=== PATIENT | male | born 1980 | race African-American/Black ===

== ENCOUNTER 2017-02-16 19:43 | Emergency (ER) | payer BC ==
[2017-02-16 19:54] VITALS: BP 132/90
[2017-02-16] MEDS ORDERED: Sodium Chloride 0.9% 10 ML Syringe FLUSH PRN (20:13)
[2017-02-16] MEDS ORDERED: Ketorolac 30 MG/ML SDV IVPUSH ONE (20:13)
--- NOTE | 2017-02-16 22:06 | EDM.PDOC ---
ED HPI GENERAL MEDICAL PROBLEM - General Chief Complaint: Chest Pain Stated Complaint: Chest pain Time Seen by Provider: 02/16/17 20:10 Source of Information: Reports: Patient, RN Notes Reviewed History Limitations: Reports: No Limitations - History of Present Illness INITIAL COMMENTS - FREE TEXT/NARRATIVE: 36 year old male presents to the ED with complaints of substernal chest pain that started yesterday while he was at work. He describes the pain as achy and constant. The pain radiates into his back. The pain is worse when lying flat and improves with sitting up or learning forward. The pain is worse with inspiration. He says "the pain is on the inside." He denies pain with palpation to his chest. He has no cardiac history or congenital heart history. He denies any history of drug use. He does not drink alcohol or use tobacco. He does a lot of heavy lifting at his job. He takes no medications. He denies fever, chills, sweats, dizziness, lightheadedness, shortness of breath, cough, dyspnea. No nausea, vomiting, abdominal pain, diarrhea or constipation. Chest Pain Score (Numeric/FACES): 10 - Related Data Allergies Allergy/AdvReac Type Severity Reaction Status Date / Time No Known Allergies Allergy Verified 02/16/17 19:49 Home Meds: Home Meds Ibuprofen 600 mg PO TID PRN #90 tablet 02/16/17 [Rx] Past Medical History - Past Health History Medical/Surgical History: Denies Medical/Surgical History HEENT History: Reports: Allergic Rhinitis Psychiatric History: Reports: None Hematologic History: Reports: None - Infectious Disease History Infectious Disease History: Reports: None Social & Family History - Family History Family Medical History: Noncontributory - Tobacco Use Smoking Status *Q: Never Smoker Second Hand Smoke Exposure: No - Caffeine Use Caffeine Use: Reports: Energy Drinks - Recreational Drug Use Recreational Drug Use: No - Living Situation & Occupation Occupation: Unemployed ED ROS GENERAL - Review of Systems Review Of Systems: See Below Constitutional: Reports: No Symptoms. Denies: Fever, Chills, Diaphoresis Respiratory: Reports: Pleuritic Chest Pain. Denies: Shortness of Breath, Cough Cardiovascular: Reports: Chest Pain. Denies: Dyspnea on Exertion, Edema, Lightheadedness, Palpitations GI/Abdominal: Denies: Abdominal Pain, Constipation, Diarrhea, Hematemesis, Nausea, Vomiting ED EXAM, GENERAL - Physical Exam Exam: See Below Exam Limited By: No Limitations General Appearance: Alert, WD/WN, Anxious, Mild Distress Respiratory/Chest: No Respiratory Distress, Lungs Clear, Normal Breath Sounds, No Accessory Muscle Use, Chest Non-Tender Cardiovascular: Normal Peripheral Pulses, Regular Rate, Rhythm, No Edema, No JVD , No Murmur, No Rub, Other (Asked patient to lean forward, he denied any change in symptoms. I then had him lie flat and he reported worsening of chest pain. ) . No: Friction Rub GI/Abdominal: Normal Bowel Sounds, Soft, Non-Tender Neurological: Alert, Oriented, Normal Cognition EKG INTERPRETATION EKG Date: 02/16/17 Time: 19:58 Rhythm: NSR Rate (Beats/Min): 67 Fonda: LAD-Left Fonda Deviation P-Wave: Present QRS: Normal ST-T: Elevated QT: Normal EKG Interpretation Comments: EKG read by Dr. Bond. Patient has diffuse ST segment elevation, consistent with pericarditis. Dr. Bond recommends labs and chest x-ray. CBC with manual diff is normal. CRP and ESR are WNL. D-dimer and Troponin WNL. CMP normal. 1 view portable chest x-ray reviewed with Dr. Bond. Normal chest x-ray. No pleural effusions, infiltrates. Heart size appears slightly large, likely due to portable technique. No pneumothorax. Normal mediastinum. Compared to previous Cxr and is unchanged. Patient was treated with 30mg of IV toradol and had complete resolution of pain. Labs and Chest x-ray are normal. History, exam, and EKG findings are suggestive of pericarditis. Discussed with Dr. Bond again who agrees and recommends treating with NSAIDs. Patient was notified of treatment plan and is agreeable. He agrees to f/u in the clinic next week for recheck and to establish care. He was educated on return precautions. Discharge instructions as documented. Course - Vital Signs Last Recorded V/S: Last Vital Signs Temp 97.1 F 02/16/17 19:49 Pulse 61 02/16/17 19:49 Resp 20 02/16/17 19:49 BP 132/90 02/16/17 19:49 Pulse Ox 97 02/16/17 19:49 - Orders/Labs/Meds Orders: Active Orders 24 hr Category Date Time Status EKG Documentation Completion [RC] ASDIRECTED Care 02/16/17 20:16 Active Peripheral IV Care [RC] . DIRECTED Care 02/16/17 20:14 Active CXR [Chest 1V Frontal] [CR] Stat Exams 02/16/17 20:13 Taken Sodium Chloride 0.9% [Saline Flush] Med 02/16/17 20:13 Active 10 ml FLUSH ASDIRECTED PRN Peripheral IV Insertion Adult [OM.PC] Stat Oth 02/16/17 20:13 Ordered EKG 12 Lead [EK] Stat Ther 02/16/17 20:16 Ordered Medication Orders Sodium Chloride (Saline Flush) 10 ml FLUSH ASDIRECTED PRN PRN Reason: Keep Vein Open Last Admin: 02/16/17 20:21 Dose: 10 ml Labs: Laboratory Tests 02/16/17 02/16/17 02/16/17 Range/Units 20:05 20:05 20:05 WBC 5.62 (4.23-9.07) K/mm3 RBC 6.15 H (4.63-6.08) M/mm3 Hgb 15.6 (13.7-17.5) gm/L Hct 45.7 (40.1-51.0) % MCV 74.3 L (79.0-92.2) fl MCH 25.4 L (25.7-32.2) pg MCHC 34.1 (32.2-35.5) g/dl RDW Std Deviation 36.1 (35.1-43.9) fL Plt Count 169 (163-337) K/mm3 MPV 11.7 (9.4-12.3) fl Neutrophils % (Manual) 55 (40-60) % Band Neutrophils % 0 (0-10) % Lymphocytes % (Manual) 40 (20-40) % Atypical Lymphs % 0 % Monocytes % (Manual) 4 (2-10) % Eosinophils % (Manual) 1 (0.8-7.0) % Basophils % (Manual) 0 L (0.2-1.2) Platelet Estimate Adequate Hypochromasia 1+ slight Anisocytosis 1+ slight Microcytosis 1+ slight RBC Morph Comment Not Reportable ESR (0-15) mm/hr D-Dimer, Quantitative 0.26 (0.19-0.59) mg/L Sodium (136-145) mEq/L Potassium (3.5-5.1) mEq/L Chloride (98-107) mEq/L Carbon Dioxide (21-32) mEq/L Anion Gap (5-15) BUN (7-18) mg/dL Creatinine (0.7-1.3) mg/dL Est Cr Clr Drug Dosing mL/min Estimated GFR (MDRD) (>60) mL/min BUN/Creatinine Ratio (14-18) Glucose (74-106) mg/dL Calcium (8.5-10.1) mg/dL Total Bilirubin (0.2-1.0) mg/dL AST (15-37) U/L ALT (16-63) U/L Alkaline Phosphatase (46-116) U/L Troponin I < 0.017 (0.00-0.056) ng/mL C-Reactive Protein 0.5 (<1.0) mg/dL Total Protein (6.4-8.2) g/dl Albumin (3.4-5.0) g/dl Globulin gm/dL Albumin/Globulin Ratio (1-2) 02/16/17 02/16/17 Range/Units 20:05 20:05 WBC (4.23-9.07) K/mm3 RBC (4.63-6.08) M/mm3 Hgb (13.7-17.5) gm/L Hct (40.1-51.0) % MCV (79.0-92.2) fl MCH (25.7-32.2) pg MCHC (32.2-35.5) g/dl RDW Std Deviation (35.1-43.9) fL Plt Count (163-337) K/mm3 MPV (9.4-12.3) fl Neutrophils % (Manual) (40-60) % Band Neutrophils % (0-10) % Lymphocytes % (Manual) (20-40) % Atypical Lymphs % % Monocytes % (Manual) (2-10) % Eosinophils % (Manual) (0.8-7.0) % Basophils % (Manual) (0.2-1.2) Platelet Estimate Hypochromasia Anisocytosis Microcytosis RBC Morph Comment ESR 6 (0-15) mm/hr D-Dimer, Quantitative (0.19-0.59) mg/L Sodium 139 (136-145) mEq/L Potassium 3.9 (3.5-5.1) mEq/L Chloride 105 (98-107) mEq/L Carbon Dioxide 25 (21-32) mEq/L Anion Gap 12.9 (5-15) BUN 19 H (7-18) mg/dL Creatinine 1.1 (0.7-1.3) mg/dL Est Cr Clr Drug Dosing 90.68 mL/min Estimated GFR (MDRD) > 60 (>60) mL/min BUN/Creatinine Ratio 17.3 (14-18) Glucose 128 H (74-106) mg/dL Calcium 8.8 (8.5-10.1) mg/dL Total Bilirubin 0.4 (0.2-1.0) mg/dL AST 30 (15-37) U/L ALT 43 (16-63) U/L Alkaline Phosphatase 79 (46-116) U/L Troponin I (0.00-0.056) ng/mL C-Reactive Protein (<1.0) mg/dL Total Protein 7.1 (6.4-8.2) g/dl Albumin 3.5 (3.4-5.0) g/dl Globulin 3.6 gm/dL Albumin/Globulin Ratio 1.0 (1-2) Meds: Medications Generic Name Dose Route Start Last Admin Trade Name Freq PRN Reason Stop Dose Admin Sodium Chloride 10 ml 02/16/17 20:13 02/16/17 20:21 Saline Flush FLUSH 10 ml ASDIRECTED PRN Administration Keep Vein Open Discontinued Medications Generic Name Dose Route Start Last Admin Trade Name Freq PRN Reason Stop Dose Admin Ketorolac Tromethamine 30 mg 02/16/17 20:13 02/16/17 20:21 Toradol IVPUSH 02/16/17 20:14 30 mg ONETIME ONE Administration Departure - Departure Time of Disposition: 22:03 Disposition: Home, Self-Care 01 Condition: Good Clinical Impression: Chest pain Qualifiers: Chest pain type: unspecified Qualified Code(s): R07.9 - Chest pain, unspecified Pericarditis Qualifiers: Pericarditis type: idiopathic Chronicity: acute Qualified Code(s): I30.0 - Acute nonspecific idiopathic pericarditis Prescriptions: Ibuprofen 600 mg PO TID PRN #90 tablet PRN Reason: Pain Instructions: Pericarditis, Nonspecific Chest Pain, [id number] Referrals: PCP,None [Primary Care Provider] - Forms: ED Department Discharge, ED Return to Work/School Form Additional Instructions: Ibuprofen 600mg 3 times a day consistent for 4 weeks. Tylenol as needed for pain not relieved by Ibuprofen Return to ER with worsening symptoms, difficulty breathing, lightheadedness, dizziness, or any additional concerns Call the clinic to schedule an appointment with one of our primary care providers. Call [phone] to schedule Recommend that you follow-up next week for recheck No strenuous activity for 1 month. No heavy lifting of intense exercise. - My Orders Last 24 Hours: My Active Orders 02/16/17 20:13 CXR [Chest 1V Frontal] [CR] Stat Sodium Chloride 0.9% [Saline Flush] 10 ml FLUSH ASDIRECTED PRN Peripheral IV Insertion Adult [OM.PC] Stat 02/16/17 20:14 Peripheral IV Care [RC] . DIRECTED 02/16/17 20:16 EKG Documentation Completion [RC] ASDIRECTED EKG 12 Lead [EK] Stat - Assessment/Plan Last 24 Hours: My Active Orders 02/16/17 20:13 CXR [Chest 1V Frontal] [CR] Stat Sodium Chloride 0.9% [Saline Flush] 10 ml FLUSH ASDIRECTED PRN Peripheral IV Insertion Adult [OM.PC] Stat 02/16/17 20:14 Peripheral IV Care [RC] . DIRECTED 02/16/17 20:16 EKG Documentation Completion [RC] ASDIRECTED EKG 12 Lead [EK] Stat
--- NOTE | 2017-02-19 08:35 | CR ---
Chest: Portable view of the chest was obtained. Comparison: Previous chest x-ray of 05/13/15. Heart size and mediastinum are within normal limits for portable technique. Lungs are clear. Bony structures are grossly intact. Impression: 1. Nothing acute is identified on portable chest x-ray. Diagnostic code #1
== END 2017-02-16 22:22 | disposition home or self-care (01) ==
LOC: JD.ED 19:43
DX: I30.0 Acute nonspecific idiopathic pericarditis (principal)
CPT/HCPCS: 36415; 71010; 80053; 84484; 85025; 85379; 85652; 86140; 93005; 96374; 99285; J1885; J7050; 93010

== ENCOUNTER 2017-06-11 20:56 | Emergency (ER) | payer BC ==
[2017-06-11 21:12] VITALS: BP 134/95
[2017-06-11] MEDS ORDERED: Sodium Chloride 0.9% 10 ML Syringe FLUSH PRN (21:31)
[2017-06-11] MEDS ORDERED: HYDROmorphone 0.5 MG/0.5 ML SYRINGE IVPUSH ONE (21:32)
[2017-06-11] MEDS ORDERED: Ondansetron 4 MG/2 ML SDV IVPUSH ONE (21:32)
--- NOTE | 2017-06-11 21:38 | EDM.PDOC ---
ED HPI GENERAL MEDICAL PROBLEM - General Chief Complaint: Back Pain or Injury Stated Complaint: BACK PAIN Time Seen by Provider: 06/11/17 21:20 Source of Information: Reports: Patient History Limitations: Reports: No Limitations - History of Present Illness INITIAL COMMENTS - FREE TEXT/NARRATIVE: 36-year-old male presents to the ED with severe mid back pain. This started about 3 weeks ago and is progressively getting worse. He worked 10 hours a day but states that it hurts tremendously by the time is done his shift and he is unable to sleep over the last 3 days because of increasing pain. Of note the patient was recently diagnosed with tuberculosis by quadrant of a lead testing 2 that was positive. He does have a mild cough with sputum production but does not have any hemoptysis. He was visiting gone over the months of January. He was diagnosed positive with quadrivalent testing in April. Unfortunately he had changed his phone number and they were not able to locate him up until recently. He is therefore not received any treatment for this. He is coughing but not bringing up any hemoptysis. He is to see infectious disease specialist tomorrow in regards to starting treatment. Currently employed at [employer]. He presents not wearing any mask or form of protection. Concern therefore is for possible miliary tuberculosis affecting his lower thoracic spine where his pain is. Denies any weight loss. Appetite remains quite good. Keeping very poorly due to back pain. He has taken no medication for the back pain. Onset: Gradual Onset Date: 05/23/17 Duration: Day(s): (Pain is gradually worsened over the last 3 weeks.) Location: Reports: Back (Mid lower back i.e. lower thoracic spine) Quality: Reports: Ache (E aching pain worsened with movement better if he is lying perfectly still grades the pain as 10 out of 10 with movement and standing but) Severity: Moderate (3-4 out of 10 with lying still) Improves with: Reports: Rest Worsens with: Reports: Movement Context: Denies: Activity, Exercise, Lifting, Sick Contact, Trauma Associated Symptoms: Reports: Cough, cough w sputum, Other Treatments EXTRUSION DIE COORDINATOR: Reports: Other (see below) (None.) Back Pain Score (Numeric/FACES): 9 - Related Data Allergies Allergy/AdvReac Type Severity Reaction Status Date / Time No Known Allergies Allergy Verified 02/16/17 19:49 Home Meds: Home Meds Meloxicam 15 mg PO DAILY #30 tablet 06/11/17 [Rx] oxyCODONE HCl/Acetaminophen [Percocet 5-325 mg Tablet] 1 - 2 each PO Q4H PRN # 20 tablet 06/11/17 [Rx] Past Medical History - Past Health History Medical/Surgical History: Denies Medical/Surgical History HEENT History: Reports: Allergic Rhinitis Psychiatric History: Reports: None Hematologic History: Reports: None - Infectious Disease History Infectious Disease History: Reports: TB Social & Family History - Family History Family Medical History: Noncontributory - Tobacco Use Smoking Status *Q: Never Smoker Second Hand Smoke Exposure: No - Caffeine Use Caffeine Use: Reports: Energy Drinks - Recreational Drug Use Recreational Drug Use: No - Living Situation & Occupation Occupation: Unemployed ED ROS GENERAL - Review of Systems Review Of Systems: See Below Constitutional: Reports: Malaise, Weakness, Fatigue. Denies: Fever, Chills, Night Sweats, Diaphoresis, Decreased Appetite, Weight Loss HEENT: Reports: No Symptoms Respiratory: Reports: Cough, Sputum. Denies: Hemoptysis (Occasional sputum production) Cardiovascular: Reports: No Symptoms. Denies: Chest Pain, Blood Pressure Problem, Claudication, Dyspnea on Exertion, Edema, Lightheadedness, Orthopnea Endocrine: Reports: Fatigue GI/Abdominal: Reports: No Symptoms : Reports: No Symptoms Musculoskeletal: Reports: Back Pain Skin: Reports: No Symptoms (See history of present illness) Neurological: Reports: No Symptoms Psychiatric: Reports: No Symptoms Hematologic/Lymphatic: Reports: No Symptoms ED EXAM,LOWER BACK PAIN/INJURY - Physical Exam Exam: See Below Exam Limited By: No Limitations General Appearance: Alert, WD/WN, Moderate Distress (Appears to be meningealPain and discomfort.) Eye Exam: Bilateral Eye: Normal Inspection Neck: Normal Inspection, Supple, Non-Tender, Full Range of Motion. No: Lymphadenopathy (L), Lymphadenopathy (R) Respiratory/Chest: No Respiratory Distress, Lungs Clear, Normal Breath Sounds, No Accessory Muscle Use Cardiovascular: Normal Peripheral Pulses, Regular Rate, Rhythm, No Edema, No Gallop, No Murmur, No Rub GI/Abdominal: Normal Bowel Sounds, Soft, Non-Tender, No Organomegaly, No Abnormal Bruit, No Mass, Pelvis Stable Back Exam: Full Range of Motion, Vertebral Tenderness (Pain is localized to T10- 11 and 12 vertebra posteriorly), Other (Pain is worsened when he hyperextends his back.). No: CVA Tenderness (L), CVA Tenderness (R) Extremities: Normal Inspection ( on palpation of the spinous processes.), Normal Range of Motion, Non-Tender, No Pedal Edema Neurological: Alert, Normal Mood/Affect, Normal Dorsiflexion, CN II-XII Intact Psychiatric: Normal Affect Skin Exam: Warm, Intact, Normal Color, No Rash Course - Vital Signs Last Recorded V/S: Last Vital Signs Temp 35.9 C 06/11/17 21:07 Pulse 79 06/11/17 21:07 Resp BP 134/95 H 06/11/17 21:07 Pulse Ox 96 06/11/17 21:07 - Orders/Labs/Meds Orders: Active Orders 24 hr Category Date Time Status Peripheral IV Care [RC] . DIRECTED Care 06/11/17 21:32 Active Chest wo Cont [CT] Stat Exams 06/11/17 21:34 Taken Thoracic Spine wo Cont [CT] Stat Exams 06/11/17 21:33 Taken Peripheral IV Insertion Adult [OM.PC] Stat Oth 06/11/17 21:32 Ordered Labs: Laboratory Tests 06/11/17 06/11/17 06/11/17 Range/Units 21:37 21:37 21:37 WBC 4.41 (4.23-9.07) K/mm3 RBC 6.36 H (4.63-6.08) M/mm3 Hgb 16.0 (13.7-17.5) gm/L Hct 47.6 (40.1-51.0) % MCV 74.8 L (79.0-92.2) fl MCH 25.2 L (25.7-32.2) pg MCHC 33.6 (32.2-35.5) g/dl RDW Std Deviation 37.3 (35.1-43.9) fL Plt Count 168 (163-337) K/mm3 MPV 11.9 (9.4-12.3) fl Neutrophils % (Manual) 50 (40-60) % Band Neutrophils % 0 (0-10) % Lymphocytes % (Manual) 42 H (20-40) % Atypical Lymphs % 2 % Monocytes % (Manual) 5 (2-10) % Eosinophils % (Manual) 1 (0.8-7.0) % Basophils % (Manual) 0 L (0.2-1.2) Platelet Estimate Adequate Plt Morphology Comment Normal RBC Morph Comment Normal ESR 4 (0-15) mm/hr Sodium 141 (136-145) mEq/L Potassium 4.1 (3.5-5.1) mEq/L Chloride 106 (98-107) mEq/L Carbon Dioxide 28 (21-32) mEq/L Anion Gap 11.1 (5-15) BUN 16 (7-18) mg/dL Creatinine 1.2 (0.7-1.3) mg/dL Est Cr Clr Drug Dosing 69.15 mL/min Estimated GFR (MDRD) > 60 (>60) mL/min BUN/Creatinine Ratio 13.3 L (14-18) Glucose 132 H (74-106) mg/dL Calcium 8.9 (8.5-10.1) mg/dL Total Bilirubin 0.3 (0.2-1.0) mg/dL AST 29 (15-37) U/L ALT 38 (16-63) U/L Alkaline Phosphatase 84 (46-116) U/L C-Reactive Protein 0.7 (<1.0) mg/dL Total Protein 6.7 (6.4-8.2) g/dl Albumin 3.5 (3.4-5.0) g/dl Globulin 3.2 gm/dL Albumin/Globulin Ratio 1.1 (1-2) Meds: Medications Discontinued Medications Generic Name Dose Route Start Last Admin Trade Name Freq PRN Reason Stop Dose Admin Hydromorphone HCl 0.5 mg 06/11/17 21:32 06/11/17 21:50 Dilaudid IVPUSH 06/11/17 21:33 0.5 mg ONETIME ONE Administration Ketorolac Tromethamine 30 mg 06/11/17 21:45 06/11/17 21:50 Toradol IVPUSH 30 mg ONETIME SRINIVASAN Administration Ondansetron HCl 4 mg 06/11/17 21:32 06/11/17 21:48 Zofran IVPUSH 06/11/17 21:33 4 mg ONETIME ONE Administration Sodium Chloride 10 ml 06/11/17 21:31 06/11/17 21:52 Saline Flush FLUSH 10 ml ASDIRECTED PRN Administration Keep Vein Open - Radiology Interpretation Free Text/Narrative:: 36-year-old male from [place]. Presents to the ED with increasing back pain 3 weeks. This is the point now that it's interfering with his ability to fall asleep is no position is carpal. His continue to work in [employer] standing on concrete for 10 hours a day with minimal marked aggravation of the pain. Pain is in his lower thoracic spine. Of note patient has been recently diagnosed with quadrivalent testing for tuberculosis positive 2. He does have a productive cough without hemoptysis. Denies any weight loss. Appetite remains fair. He does have the occasional night sweats. For there is concern for miliary tuberculosis involving his thoracic spine plan CT thoracic spine. Routine labs to include CRP and sedimentation rate. CT chest will also be done without contrast. He is to see infectious disease specialist tomorrow at [facility] to start medication for tuberculosis. - Re-Assessments/Exams Free Text/Narrative Re-Assessment/Exam: 06/11/17 23:00 : ET scan of his chest is reported with no focal opacity in the lungs no significant pleural effusion or pneumothorax. There is no acute abnormality of the heart no acute osseous abnormalities. No significant soft tissue abnormalities . No abnormalities of the vasculature. No pathologically enlarged lymph nodes. Essentially a negative CT chest for any possibility of tuberculosis. CT of the thoracic spine revealed no subluxation or acute fractures. There are no lytic or blastic skeletal lesions. There is no evidence of large disc herniation or high-grade spinal canal stenosis. There is degenerative changes with mild anterior spurring throughout the lower lumbar spine particularly T9-T-12 which correlates with the patient's pain. Is therefore his current pain is back there appears to be from degenerative disc disease and arthritis. Reassured no signs of tuberculosis are evident. A copy of his CT chest and back were placed on CD-ROM and given to the patient take to infectious disease specialist whom he supposed to see tomorrow. I will also fax over my history and physical examination in the [facility] reports for the infectious disease doctor's perusal. I suspect it will be Dr. Romero. Treatment will be meloxicam 15 mg once a day 30 tablets. I did provide him with a few tablets of Percocet 5/3/25 milligrams strength one or 2 tablets primarily at bedtime only to help him sleep due to the severity of his back pain. He felt markedly improved at the time of his discharge from the medications administered in the ED. Departure - Departure Time of Disposition: 23:18 Disposition: Home, Self-Care 01 Condition: Fair Clinical Impression: Normal computed tomography scan of chest Chronic thoracic back pain Qualifiers: Back pain laterality: midline Qualified Code(s): M54.6 - Pain in thoracic spine - Discharge Information Prescriptions: Meloxicam 15 mg PO DAILY #30 tablet oxyCODONE HCl/Acetaminophen [Percocet 5-325 mg Tablet] 1 - 2 each PO Q4H PRN # 20 tablet PRN Reason: pain relief. Instructions: Chest Wall Pain, [id number] Referrals: PCP,None [Primary Care Provider] - Forms: ED Department Discharge Additional Instructions: Evaluation in the emergency him today in regards to increasing mid back pain. Examination suggests pain is coming from thoracic 1011 and 12 vertebra in your mid back. Recent history suggests possible tuberculosis. You're waiting to see the infectious disease expert tomorrow. It's unclear as to how this diagnosis was made or suspicion of diagnosis made. CT scan of your thoracic spine was carried out in the ED and it does not show any cancer or evidence of miliary tuberculosis in your back to be causing your pain. There is degenerative arthritic changes at those levels that is likely the cause of the pain. He does treatment with anti-inflammatory meloxicam 15 mg once daily. I have given you a months supply to see if this alleviates a good deal of your discomfort. May use Percocet tablets 08/02/24 one or 2 at bedtime to help you sleep until back pain settles down. Cannot use this while at work. Secondly CT scan of your chest was done to see if there was evidence of tuberculosis. No signs of TB are evident on CAT scan of the chest. Copies of your CT scans are given to you to take to the infectious disease specialist tomorrow as well as copies of the radiology reports in this regard. Follow-up with your personal care physician in regards to back pain and 2 weeks time if not markedly improved. - My Orders Last 24 Hours: My Active Orders 06/11/17 21:32 Peripheral IV Care [RC] . DIRECTED Peripheral IV Insertion Adult [OM.PC] Stat 06/11/17 21:33 Thoracic Spine wo Cont [CT] Stat 06/11/17 21:34 Chest wo Cont [CT] Stat - Assessment/Plan Last 24 Hours: My Active Orders 06/11/17 21:32 Peripheral IV Care [RC] . DIRECTED Peripheral IV Insertion Adult [OM.PC] Stat 06/11/17 21:33 Thoracic Spine wo Cont [CT] Stat 06/11/17 21:34 Chest wo Cont [CT] Stat
[2017-06-11] MEDS ORDERED: Ketorolac 30 MG/ML SDV IVPUSH SCH (21:45)
--- NOTE | 2017-06-12 12:39 | CT ---
CT chest Technique: Multiple axial sections were obtained from above the lung apices inferiorly through the lung bases. Intravenous contrast was not utilized. Comparison: No prior chest CT, prior chest x-ray of 02/16/17. Findings: Mediastinum and hilar regions have an unremarkable appearance. No coronary artery calcification is seen. No pericardial thickening is seen. Small portion of the visualized upper abdominal structures appear within normal limits. Lungs are clear. No acute parenchymal densities are seen within the lungs. No pleural effusions are seen. No calcified granulomas are identified. Bone window settings were reviewed which appear within normal limits for the patient's age. Impression: 1. No abnormality identified on noncontrast CT study of the chest. Diagnostic code #1 I agree with preliminary report from [facility], finalized at 06/11/17, 11:51 PM Central Time
--- NOTE | 2017-06-12 12:39 | CT ---
CT thoracic spine Technique: Multiple axial sections were obtained through the thoracic spine. Reconstructed coronal and sagittal images were obtained. Findings: Minimal scattered anterior endplate osteophytes are seen. Small calcifications are seen within multiple anterior discs felt to represent slight calcification within the anterior annulus. Vertebral body heights are maintained. No fracture is seen. No abnormal subluxation is noted. No bony central or bony neural foraminal stenosis is seen. No gross disc herniation is appreciated. Impression: 1. Mild degenerative change. 2. No additional abnormality appreciated on CT study of the thoracic spine. Diagnostic code #2 Agree with preliminary report issued by [facility] ([facility] preliminary report dictated on 06/11/17, 11:47 PM Central Time)
== END 2017-06-11 23:34 | disposition home or self-care (01) ==
LOC: JD.ED 20:56
DX: M54.6 Pain in thoracic spine (principal); G89.29 Other chronic pain; Z79.899 Other long term (current) drug therapy
CPT/HCPCS: 36415; 71250; 72128; 80053; 85025; 85652; 86140; 96374; 96375; 99284; J1170; J1885; J2405; J7050

== ENCOUNTER 2017-08-24 19:51 | Emergency (ER) | payer BC ==
[2017-08-24 20:01] VITALS: BP 131/94
[2017-08-24] MEDS ORDERED: Ondansetron 4 MG Tab.DIS PO ONE (20:41)
--- NOTE | 2017-08-24 20:49 | EDM.PDOC ---
ED HPI GENERAL MEDICAL PROBLEM - General Chief Complaint: Skin Complaint Stated Complaint: NO APPETITE/NOSE & EYES ITCHING Time Seen by Provider: 08/24/17 20:13 Source of Information: Reports: Patient History Limitations: Reports: No Limitations - History of Present Illness INITIAL COMMENTS - FREE TEXT/NARRATIVE: The patient states that he developed nausea without emesis on Sunday, 2017. He has not had diarrhea, but he has had frequent bowel movements. He reports a decreased appetite. He then reports having sneezing and itchy nose tonight. No prior similar symptoms. The patient was seen by a nurse at the [facility] today, and was instructed to come to the ED. The patient goes to the [facility] for treatment for latent tuberculosis. He states that he is being treated with 2 antibiotics - he does not know their names - for 9 months, and that he has completed about 3 months so far. The patient states that he has allergic rhinitis for which he ordinarily takes Zyrtec, but that he has not taken it for the past 2 days due to his gastrointestinal symptoms. The patient's PCP is Shital Luna, who has not been contacted about the patient's gastrointestinal symptoms. - Related Data Allergies Allergy/AdvReac Type Severity Reaction Status Date / Time No Known Allergies Allergy Verified 08/24/17 20:01 Home Meds: Home Meds Meloxicam 15 mg PO DAILY #30 tablet 06/11/17 [Rx] Cetirizine [ZyrTEC] 10 mg PO DAILY 08/24/17 [History] Ondansetron [Zofran ODT] 1 tab PO Q8H PRN #10 tab.dis 08/24/17 [Rx] Past Medical History HEENT History: Reports: Allergic Rhinitis - Infectious Disease History Infectious Disease History: Reports: TB (latent) Social & Family History - Family History Family Medical History: Noncontributory - Tobacco Use Smoking Status *Q: Never Smoker Second Hand Smoke Exposure: No - Caffeine Use Caffeine Use: Reports: None - Alcohol Use Alcohol Use History: No - Recreational Drug Use Recreational Drug Use: No - Living Situation & Occupation Living situation: Reports: Single, Other (with a friend) Occupation: Employed ([employer]) ED ROS GENERAL - Review of Systems Review Of Systems: ROS reveals no pertinent complaints other than HPI. ED EXAM, SKIN/RASH Exam: See Below Exam Limited By: No Limitations General Appearance: Alert, WD/WN, No Apparent Distress Eye Exam: Bilateral Eye: Normal Inspection Ears: Normal External Exam, Normal Canal, Hearing Grossly Normal, Normal TMs Nose: Normal Inspection, No Blood, Other (Bilateral nasal mucosa edema, Rt > Lt) Throat/Mouth: Normal Inspection, Normal Lips, Normal Teeth, Normal Gums, Normal Oropharynx, Normal Voice, No Airway Compromise Head: Atraumatic, Normocephalic Neck: Normal Inspection, Full Range of Motion Respiratory/Chest: No Respiratory Distress, Lungs Clear, Normal Breath Sounds, No Accessory Muscle Use Cardiovascular: Normal Peripheral Pulses, Regular Rate, Rhythm, No Edema, No Gallop, No JVD, No Murmur, No Rub Peripheral Pulses: 4+: Radial (L), Radial (R) GI/Abdominal: Normal Bowel Sounds, Soft, Non-Tender, No Organomegaly, No Distention, No Abnormal Bruit, No Mass (Male) Exam: Deferred Rectal (Males) Exam: Deferred Back Exam: Normal Inspection, Full Range of Motion, NT Extremities: Normal Inspection, Normal Range of Motion, No Pedal Edema, Normal Capillary Refill Neurological: Alert, Oriented, Normal Cognition, No Motor/Sensory Deficits Psychiatric: Normal Affect Skin: Warm, Dry, Intact, Normal Color, No Rash Course - Vital Signs Last Recorded V/S: Last Vital Signs Temp 36.9 C 08/24/17 19:59 Pulse 56 L 08/24/17 19:59 Resp 16 08/24/17 19:59 BP 131/94 H 08/24/17 19:59 Pulse Ox 95 08/24/17 19:59 - Orders/Labs/Meds Meds: Medications Discontinued Medications Generic Name Dose Route Start Last Admin Trade Name Hussainq PRN Reason Stop Dose Admin Ondansetron HCl 4 mg 08/24/17 20:41 08/24/17 20:46 Zofran Odt PO 08/24/17 20:42 4 mg ONETIME ONE Administration - Re-Assessments/Exams Free Text/Narrative Re-Assessment/Exam: 08/24/17 20:42 The patient has 2 issues: The nausea that he has been experiencing this week, and the sneezing and itchy nose that he developed tonight. The cause of the patient's nausea is indeterminate. It could very well be related to one or both of the antibiotics that he is taking for his latent TB, or the patient could have acquired a gastrointestinal virus, or, perhaps some other cause. As the patient has not had any emesis, bloodwork and other tests would not be indicated. As the patient does not have diarrhea, a stool sample would not be indicated. For tonight's purposes, I will start the patient on Zofran, and e-prescribe additional. With respect to the patient's sneezing and itchy nose, I suspect that this is from the patient's allergic rhinitis, as the patient has not taken his Zyrtec over the past couple of days. On examination, he has significant nasal congestion bilaterally, worse on the right than the left. I'm recommending that the patient restart his Zyrtec. Departure - Departure Time of Disposition: 20:44 Disposition: Home, Self-Care 01 Condition: Good Clinical Impression: Nausea, Allergic rhinitis - Discharge Information Prescriptions: Ondansetron [Zofran ODT] 1 tab PO Q8H PRN #10 tab.dis PRN Reason: Nausea/Vomiting Instructions: Nausea, Adult, Allergic Rhinitis, Adult Referrals: Shital Mckinney PA-C [Primary Care Provider] - Forms: ED Department Discharge Additional Instructions: You were seen in the emergency room for nausea, poor appetite, sneezing, and itchy nose. The cause of your nausea and poor appetite is not known. It could be due to the anti-tuberculosis medicines that you are on, or, possibly, a gastrointestinal virus. You have been started on anti-nausea medicine Zofran. A prescription for Zofran has been sent to the [facility], located in the [address] [facility]. Dissolve 1 tablet on your tongue up to every 8 hours, as needed for nausea/ vomiting. The cause of your sneezing and itchy nose is MOST LIKELY your seasonal allergies. You should resume taking your Zyrtec. Follow-up with your PCP, Shital Mckinney, at the next available appointment. If any other problems, please do not hesitate to return to the ER.
== END 2017-08-24 21:10 | disposition home or self-care (01) ==
LOC: JD.ED 19:51
DX: J30.9 Allergic rhinitis, unspecified (principal); Z79.899 Other long term (current) drug therapy
CPT/HCPCS: 99283; A9270